=== PATIENT | male | born 1965 | race Asian ===

== ENCOUNTER 2023-07-29 20:06 | Inpatient (IN) | payer OTHER ==
[2023-07-29 20:50] LABS: BASO % 0.4 % (0-2.0); EOS % 1.9 % (0-4.5); HEMATOCRIT 47.1 % (35.4-49); HEMOGLOBIN 16.1 GM/dL (11.7-16.9); MCH 28.3 pg (25.7-33.7); MCHC 34.2 g/dl (32.0-35.9); MEAN CELL VOLUME 82.7 fl (80-96); MEAN PLT VOLUME 8.1 fl (7.5-11.1); MONO % 8.1 % (3.8-10.2); NEUT % 70.6 % (42.8-82.8); PLATELET COUNT 203 10^3/uL (134-434); RDW 14.5 % (11.9-15.9); WHITE BLOOD COUNT 6.6 K/mm3 (4.0-10.0)
[2023-07-29 21:03] LABS: PROTHROMBIN TIME (PATIENT) 11.5 SEC (9.7-13.0)
[2023-07-29 21:05] LABS: ACTIVATED PTT 33.2 SECONDS (25.2-36.5)
[2023-07-29 21:10] LABS: POTASSIUM 3.6 mmol/L (3.5-5.1)
[2023-07-29 21:12] LABS: MAGNESIUM 2.4 mg/dL (1.8-2.4)
[2023-07-29 21:13] LABS: CALCIUM 7.3 mg/dL (8.5-10.1)
[2023-07-29 21:14] LABS: BLOOD UREA NITROGEN 14.5 mg/dL (7-18)
[2023-07-29 21:16] LABS: CREATININE 0.9 mg/dL (0.55-1.3)
[2023-07-29 21:18] LABS: TOT PROT 7.2 g/dl (6.4-8.2)
[2023-07-29 21:19] LABS: BILIRUBIN,TOTAL 0.6 mg/dL (0.2-1)
[2023-07-29] MEDS: SODIUM CHLORIDE 0.9% 500 ML INFUS.BAG IV ONE (22:22)
[2023-07-30] MEDS ORDERED: ASPIRIN 325 MG ENTERIC COATED TABLET (FP) ONE (01:49)
[2023-07-30] MEDS: ASPIRIN 325 MG ENTERIC COATED TABLET (FP) PO ONE (01:52)
[2023-07-30 06:16] LABS: BASO % 0.5 % (0-2.0); EOS % 2.8 % (0-4.5); HEMATOCRIT 48.1 % (35.4-49); LYMPH % 18.3 % (8-40); MCH 27.9 pg (25.7-33.7); MCHC 33.3 g/dl (32.0-35.9); MEAN CELL VOLUME 83.7 fl (80-96); MONO % 8.2 % (3.8-10.2); NEUT % 70.2 % (42.8-82.8); PLATELET COUNT 189 10^3/uL (134-434); RBC 5.75 M/mm3 (4.00-5.60); RDW 14.3 % (11.9-15.9); WHITE BLOOD COUNT 5.9 K/mm3 (4.0-10.0)
[2023-07-30] MEDS ORDERED: LEVOTHYROXINE NA 100 MCG TABLET (FP) ONE (06:31)
[2023-07-30] MEDS ORDERED: LEVOTHYROXINE NA 25 MCG TABLET (FP) ONE (06:31)
[2023-07-30] MEDS: LEVOTHYROXINE NA 125 MCG TABLET (FP) PO SCH (06:35)
[2023-07-30 06:38] LABS: CHLORIDE 107 mmol/L (98-107); POTASSIUM 3.8 mmol/L (3.5-5.1); SODIUM 140 mmol/L (136-145)
[2023-07-30 06:41] LABS: ALBUMIN 3.7 g/dl (3.4-5.0); ANION GAP 8 mmol/L (4-13); BLOOD UREA NITROGEN 13.2 mg/dL (7-18); CO2 25 mmol/L (21-32); GLUCOSE,RANDOM 89 mg/dL (74-106); MAGNESIUM 2.1 mg/dL (1.8-2.4)
[2023-07-30 06:44] LABS: CREATININE 0.8 mg/dL (0.55-1.3); PHOSPHOROUS 6.1 mg/dL (2.5-4.9); SGOT/AST 25 U/L (15-37); SGPT/ALT 41 U/L (13-61)
[2023-07-30 06:45] LABS: BILIRUBIN,TOTAL 0.8 mg/dL (0.2-1); TOT PROT 6.6 g/dl (6.4-8.2)
[2023-07-30 06:47] LABS: ALK PHOS 102 U/L (45-117)
[2023-07-30] MEDS: INSULIN ASPART SLIDING SCALE (NOVOLOG) 1 VIAL SQ SCH (07:28)
[2023-07-30 07:34] LABS: CALCIUM 6.8 mg/dL (8.5-10.1)
[2023-07-30] MEDS: SODIUM CHLORIDE 0.9% 500 ML INFUS.BAG IV ONE (08:28)
[2023-07-30] MEDS ORDERED: SUCRALFATE 1 GM TABLET (FP) ONE (10:05)
[2023-07-30] MEDS ORDERED: ASPIRIN COATED 81 MG TABLET.EC ONE (10:05)
[2023-07-30] MEDS ORDERED: ENOXAPARIN NA (PORCINE) 40 MG/0.4 ML DISP.SYRIN SQ ONE (10:06)
[2023-07-30] MEDS: SUCRALFATE 1 GM TABLET (FP) PO SCH (10:11)
[2023-07-30] MEDS: ASPIRIN COATED 81 MG TABLET.EC PO SCH (10:11)
[2023-07-30] MEDS: ENOXAPARIN NA (PORCINE) 40 MG/0.4 ML DISP.SYRIN SQ SCH (10:12)
[2023-07-30 11:37] LABS: PH,URINE 6.5 (5.0-8.0); URINE APPEARANCE CLEAR; URINE BILIRUBIN NEGATIVE (NEGATIVE); URINE COLOR YELLOW; URINE GLUCOSE (UA) NEGATIVE (NEGATIVE); URINE KETONE NEGATIVE (NEGATIVE); URINE LEUK ESTERASE NEGATIVE (NEGATIVE); URINE NITRITE NEGATIVE (NEGATIVE); URINE PROTEIN NEGATIVE (NEGATIVE); URINE UROBILINOGEN 0.2 mg/dL (0.2-1.0)
[2023-07-30] MEDS ORDERED: CALCIUM GLUCONATE 10% - 1,000 MG/10 ML VIAL ONE (13:21)
[2023-07-30] MEDS: CALCIUM GLUCONATE 10% - 1,000 MG/10 ML VIAL IVPB ONE (13:25)
[2023-07-30] MEDS: CALCIUM CARBONATE 650 MG TABLET PO SCH (14:38)
[2023-07-30] MEDS ORDERED: CLOPIDOGREL BISULFATE 75 MG TABLET (FP) ONE (19:57)
[2023-07-30] MEDS: CLOPIDOGREL BISULFATE 75 MG TABLET (FP) PO SCH (20:00)
[2023-07-30] MEDS ORDERED: ATORVASTATIN CA 20 MG TABLET (FP) ONE (22:02)
[2023-07-30] MEDS: ATORVASTATIN CA 40 MG TABLET (FP) PO SCH (22:07)
[2023-07-30 23:10] VITALS: BMI 26.4
[2023-07-31 02:20] VITALS: RESP 18
[2023-07-31 07:00] LABS: HEMATOCRIT 45.2 % (35.4-49); HEMOGLOBIN 15.3 GM/dL (11.7-16.9); MCH 28.2 pg (25.7-33.7); MCHC 33.8 g/dl (32.0-35.9); MEAN CELL VOLUME 83.4 fl (80-96); PLATELET COUNT 187 10^3/uL (134-434); RBC 5.42 M/mm3 (4.00-5.60); RDW 14.5 % (11.9-15.9); WHITE BLOOD COUNT 5.9 K/mm3 (4.0-10.0)
[2023-07-31 07:23] LABS: CHLORIDE 107 mmol/L (98-107); POTASSIUM 3.7 mmol/L (3.5-5.1); SODIUM 141 mmol/L (136-145)
[2023-07-31 07:32] LABS: ANION GAP 9 mmol/L (4-13); CO2 25 mmol/L (21-32); GLUCOSE,RANDOM 92 mg/dL (74-106)
[2023-07-31 07:33] LABS: BLOOD UREA NITROGEN 14.2 mg/dL (7-18)
[2023-07-31 07:35] LABS: PHOSPHOROUS 6.2 mg/dL (2.5-4.9)
[2023-07-31 07:36] LABS: CREATININE 0.8 mg/dL (0.55-1.3)
[2023-07-31 07:42] LABS: CALCIUM 6.5 mg/dL (8.5-10.1)
[2023-07-31] MEDS: CALCIUM GLUCONATE IN NACL 1 GM/50 ML BAG IVPB ONE ×2 (09:39→16:33)
[2023-07-31] MEDS: CALCIUM GLUCONATE 10% - 1,000 MG/10 ML VIAL IVPB ONE (09:41)
[2023-07-31] MEDS: amLODIPine BESYLATE 5 MG TABLET (FP) PO ONE (12:43)
[2023-07-31] MEDS: LOSARTAN POTASSIUM 25 MG TABLET PO ONE ×2 (12:43→16:33)
[2023-07-31] MEDS: CALCITRIOL 0.25 MCG CAPSULE (FP) PO SCH (16:33)
[2023-07-31 19:02] VITALS: BP 138/92; PULSE 66; TEMP 98.2
[2023-07-31 19:38] LABS: POTASSIUM 3.6 mmol/L (3.5-5.1)
[2023-07-31 19:39] LABS: CALCIUM 7.1 mg/dL (8.5-10.1)
[2023-07-31 19:40] LABS: BLOOD UREA NITROGEN 17.8 mg/dL (7-18)
[2023-07-31 19:43] LABS: CREATININE 0.8 mg/dL (0.55-1.3)
[2023-08-01] MEDS ORDERED: amLODIPine BESYLATE 5 MG TABLET (FP) PO SCH (10:00)
[2023-08-01] MEDS ORDERED: LOSARTAN POTASSIUM 50 MG TABLET PO SCH (10:00)
== END 2023-07-31 19:49 | disposition home or self-care (01) | DRG 45 ==
LOC: JER 20:06 → JERBED 22:14 → J4W 07-30 20:48
PROVIDERS: ADMIT Internal Medicine; ATTEND Internal Medicine
DX: I63.512 Cerebral infarction due to unspecified occlusion or stenosis of left middle cerebral artery (principal); E83.39 Other disorders of phosphorus metabolism; G81.91 Hemiplegia, unspecified affecting right dominant side; E83.51 Hypocalcemia; E86.0 Dehydration; E03.9 Hypothyroidism, unspecified; E11.9 Type 2 diabetes mellitus without complications; E78.5 Hyperlipidemia, unspecified; R47.1 Dysarthria and anarthria; R47.81 Slurred speech; I65.21 Occlusion and stenosis of right carotid artery; R29.703 NIHSS score 3
CPT/HCPCS: 0241U-QW; 36415; 70450-TC; 70551-TC; 71045-TC-FY; 80048; 80053; 80061; 81003; 82136; 82306; 82550; 82553; 82962; 83036; 83735; 83918; 83970; 84100; 84484; 85025; 85027; 85610; 85730; 86850; 86900; 86901; 93005; 93010; 93306-TC; 93880-TC; 97116-GP; 97161-GP; 99285-25